=== PATIENT | female | born 1990 | race Caucasian/White ===

== ENCOUNTER 2017-04-14 18:29 | Emergency (ER) | payer OTHER ==
[2017-04-14 18:34] VITALS: O2SAT 99
--- NOTE | 2017-04-14 18:40 | EDPHY ---
H & P Stated Complaint: bonked heads with her horse thursday/having alberto/feels off Time Seen by Provider: 04/14/17 18:39 - Personal History LMP (Females 10-55): IUD In Place Current Tetanus/Diphtheria Vaccine: Yes - Medical/Surgical History Hx Asthma: No Hx Chronic Respiratory Disease: No Hx Diabetes: No Hx Cardiac Disease: No Hx Renal Disease: No Hx Cirrhosis: No Hx Alcoholism: No Hx HIV/AIDS: No Hx Splenectomy or Spleen Trauma: No Other PMH: csects - Social History Smoking Status: Current every day smoker Constitutional: Initial Vital Signs Temperature (C) 36.7 C 04/14/17 18:32 Heart Rate 83 04/14/17 18:32 Respiratory Rate 18 04/14/17 18:32 Blood Pressure 120/70 04/14/17 18:32 O2 Sat (%) 99 04/14/17 18:32 O2 Delivery Mode Room Air Allergies/Adverse Reactions: No Known Allergies Allergy (Unverified 04/14/17 18:31) Home Medications: Medication Instructions Recorded NK [No Known Home Meds] 04/14/17 Medical Decision Making - Diagnostics Imaging Results: Imaging Impressions Head CT 04/14/17 18:47 Impression: Normal. I telephoned results to Dr. Talat Vincent at 1920 hours. Imaging: Discussed imaging studies w/ machine scallop cutter Radiologist ED Course/Re-evaluation: CHIEF COMPLAINT: Headache, nausea, photophobia HISTORY OF PRESENT ILLNESS: 26-year-old female who is healthy. She was head- butted by her horse 2 days ago. She has a brief loss of consciousness at the time. She also has some antegrade and mild retrograde amnesia. She is presenting with mild nausea but no vomiting. She denies any neurologic problem. She states that she has had a dull headache since the event and that the light bothers her eyes as well as loud noises. REVIEW OF SYSTEMS: A 10 point review of systems was performed and is negative with the exception of the elements mentioned in the history of present illness. PHYSICAL EXAM: HR, BP, O2 Sat, RR. Temp noted General Appearance: Alert, well hydrated, appropriate, and non-toxic appearing. Head: Atraumatic without scalp tenderness or obvious injury Eyes: Pupils equal, round, reactive to light and accommodation, EOMI, no trauma , no injection. Ears: Clear bilaterally, no perforation, normal landmarks Nose: Atraumatic, no rhinorrhea, clear. Throat: There is no erythema or exudates, no lesions, normal tonsils, mucus membranes moist. Neck: Supple, 2+ carotid upstroke, nontender, no lymphadenopathy. Respiratory: No retractions, no distress, no wheezes, and no accessory muscle use. Lungs are clear to auscultation bilaterally. Cardiovascular: Regular rate and rhythm, no murmurs, rubs, or gallops. Bilateral carotid, radial, dorsalis pedis, and posterior tibial pulses intact. Good capillary refill all extremities. Gastrointestinal: Abdomen is soft, nontender, non-distended, no masses, no rebound, no guarding, no peritoneal signs. Musculoskeletal: Normal active ROM of all extremities, atraumatic. Neurological: Alert, appropriate, and interactive. The patient has normal DTRs and non-focal cranial nerves, motor, sensory, and cerebellar exam. Skin: Small red area on the right forehead at the hairline. No rashes, good turgor, no nodules on palpation. Past medical history: Prior concussion last year Past surgical history: None Family history: Noncontributory Social history: Single, does not abuse tobacco drugs or alcohol DIAGNOSTICS/PROCEDURES/CRITICAL CARE TIME: Study: CT of the head without contrast Indication: positive [place] head CT rules set Results: CT scan of the head was obtained. The results of the study are normal. The study was read by the radiologist, . I viewed the images myself on the PACS system. DIFFERENTIAL DIAGNOSIS: Includes but is not limited to: Concussion, intracranial injury, skull fracture, subdural hematoma, epidural hematoma, subarachnoid blood. MEDICAL DECISION MAKING: This patient rules in based on the [place] head CT rules set since she has loss of consciousness and amnesia. She also has point tenderness on her scalp in the right upper forehead region along the hairline. Otherwise her exam is unremarkable. Head CT is pending. 19:[address] Rodriguez, radiologist. CT head unremarkable. Plan to discharge home in good condition. Return precautions discussed. The patient is comfortable with this plan. Departure - Departure Disposition: Home, Routine, Self-Care Clinical Impression: Post concussive syndrome Condition: Good Instructions: Post Concussion Syndrome (ED) Additional Instructions: 1. Brain rest - avoid excessive screen time or any activities that worsen your symptoms. You may reintroduce activities as tolerated. 2. Physical rest - avoid any activities in which you may sustain repeated head injury such as contact sports until your symptoms have completely resolved. 3. Follow up with your primary care provider for continuing concerns. 4. Return to the emergency department for worsening headache, fainting, numbness or weakness, vomiting, or other worsening of condition. Referrals: Alexandra Aviles MD [Primary Care Provider] - As per Instructions Report Scribed for: Talat Vincent Report Scribed by: Debbie Guerrero Date of Report: 04/14/17 Time of Report: 19:34
[2017-04-14 19:49] VITALS: BP 105/56; PULSE 73; RESP 16; TEMP 98.2
== END 2017-04-14 19:50 | disposition home or self-care (01) ==
DX: G44.309 Post-traumatic headache, unspecified, not intractable (principal); F07.81 Postconcussional syndrome; F17.200 Nicotine dependence, unspecified, uncomplicated; W55.12XA Struck by horse, initial encounter

== ENCOUNTER 2018-04-12 21:10 | Emergency (ER) | payer SELFPAY ==
[2018-04-12] MEDS ORDERED: IBUPROFEN 600 MG TAB PO ONE ×2 (21:41→21:46)
--- NOTE | 2018-04-12 22:12 | EDPHY ---
H & P Time Seen by Provider: 04/12/18 21:44 HPI/ROS: Chief complaint. Sore throat HPI. 27-year-old female sore throat, headache, achy for 1 day. No cough. No rash. No abdominal pain or vomiting or diarrhea. No chest discomfort or shortness of breath. History of strep. No known exposures or recent travel. Feels similar to previous strep infections. She has some low back and hip pain. No urinary symptoms. ROS Constitutional. Fever Eyes. no problems with vision ENT. Sore throat Cardiovascular. no chest pain Respiratory. no shortness of breath, no cough Abdominal. no abdominal pain, no nausea/vomiting, no diarrhea . no problems urinating MS. Myalgias Skin. no rash Lymph. no swollen glands Neuro. headache, no dizziness, no difficulty walking or with speech Past Medical/Surgical History: IUD, Social History: Single, smoker, no alcohol Smoking Status: Current every day smoker Physical Exam: General Appearance: Alert well-developed female mild distress vital signs significant for temp 37.8 degrees Eyes: Pupils equal and round no pallor or injection. ENT, tympanic membranes are normal. Pharynx injected without exudate. Mucous membranes are moist Respiratory: There are no retractions, lungs are clear to auscultation. Cardiovascular: Regular rate and rhythm. Gastrointestinal: Abdomen is soft and nontender, no masses, bowel sounds normal. Neurological: Awake and alert, sensory and motor exams grossly normal. Skin: Warm and dry, no rashes. Musculoskeletal: Neck is supple nontender. Extremities symmetrical, full range of motion. Psychiatric: Patient is oriented X 3, there is no agitation. Constitutional: Initial Vital Signs Temperature (C) 37.8 C 04/12/18 21:12 Heart Rate 98 04/12/18 21:12 Respiratory Rate 16 04/12/18 21:12 Blood Pressure 100/62 04/12/18 21:12 O2 Sat (%) 95 04/12/18 21:12 O2 Delivery Mode Room Air Allergies/Adverse Reactions: No Known Allergies Allergy (Unverified 04/14/17 18:31) Home Medications: Medication Instructions Recorded Penicillin V Potassium [Penicillin 500 mg PO BID #14 tab 04/12/18 VK] Medical Decision Making Procedures: Ibuprofen and Decadron in the emergency department ED Course/Re-evaluation: Strep screen is negative. Patient and I discussed laboratory evaluation, treatment plan including criteria for return importance of follow-up and further evaluation. She expresses understanding and agreement Differential Diagnosis: I considered viral syndrome, strep pharyngitis, influenza - Data Points Laboratory Results: 04/12/18 04/12/18 Unknown 21:30 Group A Strep Screen NEGATIVE (NEGATIVE) Group A Strep DNA Pending Medications Given: Discontinued Medications Ibuprofen (Motrin) 600 mg PO EDNOW ONE Stop: 04/12/18 21:42 Last Admin: 04/12/18 21:43 Dose: 600 mg Departure - Departure Disposition: Home, Routine, Self-Care Clinical Impression: Pharyngitis Qualifiers: Pharyngitis/tonsillitis etiology: unspecified etiology Qualified Code(s): J02.9 - Acute pharyngitis, unspecified Condition: Good Instructions: Pharyngitis (ED) Additional Instructions: Drink plenty of fluids and stay hydrated. Ibuprofen 600 mg every 6 hr for fever and achiness Penicillin as antibiotic. Return for worsening symptoms. Recheck in 2-3 days if not improving Referrals: Alexandra Aviles MD [Primary Care Provider] - 2-3 days, if not improved Prescriptions: Penicillin V Potassium [Penicillin VK] 500 mg PO BID #14 tab
[2018-04-12] MEDS ORDERED: PENICILLIN VK 500 MG TAB PO ONE (22:26)
[2018-04-12] MEDS ORDERED: DEXAMETHASONE 4 MG TAB PO ONE (22:27)
[2018-04-12 22:33] VITALS: BP 121/68
== END 2018-04-12 22:38 | disposition home or self-care (01) ==
DX: J02.9 Acute pharyngitis, unspecified (principal)

== ENCOUNTER → 2018-06-14 | Outpatient (CLI) | payer OTHER | LOC: FIMAGING 18:46 | PROVIDERS: ATTEND Family Medicine | DX: S43.431A Superior glenoid labrum lesion of right shoulder, initial encounter (principal); M75.80 Other shoulder lesions, unspecified shoulder ==

== ENCOUNTER 2018-11-30 09:06 | Emergency (ER) | payer OTHER ==
[2018-11-30] MEDS ORDERED: PHENAZOPYRIDINE HCL 200 MG TAB PO ONE (09:50)
--- NOTE | 2018-11-30 09:52 | EDPHY ---
General Time Seen by Provider: 11/30/18 09:27 Narrative: CLINICAL IMPRESSION: Urinary tract infection ASSESSMENT/PLAN: 28-year-old otherwise healthy female presents to the emergency department with 3 days of UTI symptoms. Patient is currently on Macrobid, prescribed by Urgent Care yesterday, presents to the ED stating that she continues to have bilateral lower abdominal pain, flank pain and dysuria. No reported fever, chills, nausea , vomiting or dehydration. Vital signs stable. No tachycardia or signs of urosepsis. She is not otherwise immunocompromised and has no history of chronic UTI. She is not . Urine is consistent with UTI today. Low clinical suspicion for pyelonephritis or urosepsis. Patient was changed to Keflex and I gave peridium prescription. Encouraged primary care follow-up in the next 2-3 days. Warning signs return to ED sooner outlined in person and discharge papers. DIFFERENTIAL DX: Abdominal pain includes but not limited to urinary tract infection, pyelonephritis, infection, ectopic , salpingitis, TOA, ovarian torsion, ovarian cyst, endometriosis, uterine fibroids, acute appendicitis, acute diverticulitis, small-bowel obstruction, constipation CHIEF COMPLAINT: UTI symptoms HPI: 28-year-old otherwise healthy female presents to the emergency department with 3 days of UTI symptoms. Patient was seen at urgent care yesterday, prescribed Macrobid and was taking azo. She was told to be seen in the ED if symptoms are worsening. Patient reports she still feels like she is "urinating razor blades ". She reports bilateral abdominal pain radiating to the flank. No associated nausea, vomiting, fever, chills. She has been able to drink and stay hydrated. No abnormal complaints. She has a Mirena in place. No concern for . No history of pyelonephritis or chronic UTIs. PAST MEDICAL HISTORY: None reported See triage summary and nurse notes for addition applicable history Pertinent Past Surgical History: None reported Family History: Noncontrasted Social History: Otherwise healthy Mirena in place REVIEW OF SYSTEMS: A full 10 point review of systems was negative except for those mentioned in HPI. PHYSICAL EXAM: General Appearance: Alert, oriented, appropriate, cooperative, NAD, well hydrated, non-toxic appearing, VSS, afebrile no hypoxia. HEENT: Oropharynx clear is no erythema or exudates, no tonsillar hypertrophy or asymmetry. Dentition without abnormality.] Respiratory: There are no retractions, lungs are clear to auscultation. Cardiac: Regular rate and rhythm, no murmurs or gallops. Gastrointestinal: Abdomen is soft, generalized lower abdominal discomfort bowel sounds normal, no masses/hernia, no rigidity, guarding or focal peritoneal findings. Skin: Warm, dry, no rashes, no nodules on palpation. MEDICAL DECISION MAKING: Patient was seen independently. Secondary supervising physician at time of evaluation was: Dr. Vincent. Diagnosis: Urinary tract infection. New, requires workup Summary: See Assessment and Plan for summary of ED visit Clinical lab tests: ordered / reviewed. Patient Progress: Improved, stable for discharge . - History Smoking Status: Former smoker - Objective Vital Signs: Initial Vital Signs Temperature (C) 37 C 11/30/18 09:10 Heart Rate 82 11/30/18 09:10 Respiratory Rate 17 11/30/18 09:10 Blood Pressure 114/66 11/30/18 09:10 O2 Sat (%) 97 11/30/18 09:10 O2 Delivery Mode Room Air Allergies/Adverse Reactions: No Known Allergies Allergy (Verified 11/30/18 09:09) Home Medications: Medication Instructions Recorded Azo Cranberry 11/30/18 Cephalexin [Keflex (*)] 500 mg PO QID #28 cap 11/30/18 Macrobid 11/30/18 Phenazopyridine HCl [Pyridium] 100 mg PO TID PRN #10 tab 11/30/18 Laboratory Results: 11/30/18 11/30/18 09:43 09:43 Urine Color ROGER Urine Appearance CLEAR Urine pH 5.0 (5.0-7.5) Ur Specific [place] 1.024 (1.002-1.030) Urine Protein NEGATIVE (NEGATIVE) Urine Ketones NEGATIVE (NEGATIVE) Urine Blood NEGATIVE (NEGATIVE) Urine Nitrate POSITIVE H (NEGATIVE) Urine Bilirubin NEGATIVE (NEGATIVE) Urine Urobilinogen 4.0 EU H EU (0.2-1.0) Ur Leukocyte Esterase NEGATIVE (NEGATIVE) Urine RBC 3-5 /hpf H /hpf (0-3) Urine WBC 3-5 /hpf H /hpf (0-3) Ur Epithelial Cells TRACE /lpf /lpf (NONE-1+) Urine Mucus 3+ /lpf H /lpf (NONE-1+) Urine Glucose NEGATIVE (NEGATIVE) Urine Test NEGATIVE Medications Given: Discontinued Medications Phenazopyridine HCl (Pyridium) 200 mg PO EDNOW ONE Stop: 11/30/18 09:51 Last Admin: 11/30/18 09:57 Dose: 200 mg Departure - Departure Disposition: Home, Routine, Self-Care Clinical Impression: UTI (urinary tract infection) Qualifiers: Urinary tract infection type: acute cystitis Hematuria presence: without hematuria Qualified Code(s): N30.00 - Acute cystitis without hematuria Condition: Good Instructions: Urinary Tract Infection in Women (ED) Additional Instructions: DISCHARGE INSTRUCTIONS FROM YOUR DOCTOR Thank you for visiting our emergency department today. You were treated by a physician assistant quality manager today and your case was reviewed with our ED Attending physician. Please keep in mind that discharge from the emergency department does not mean that there is nothing wrong - it simply means that we have not identified an emergency condition that requires further evaluation or treatment in the hospital. You should always plan to follow up with primary care for re- evaluation of your condition in the next 2-3 days. If you have been referred to a specialist, please call as soon as possible (today or tomorrow) to schedule your follow up appointment at the appropriate time. PLEASE TAKE THE NEW ANTIBIOTIC WE PRESCRIBED TODAY DIRECTED. COMPLETE THE FULL COURSE OF ANTIBIOTIC. PYRIDIUM WAS ALSO PRESCRIBED TO USE FOR BURNING. PLEASE STAY WELL HYDRATED. PLEASE SEE A PRIMARY CARE DOCTOR IN 2-3 DAYS TO RECHECK. RETURN TO THE EMERGENCY DEPARTMENT FOR SEVERE ABDOMINAL PAIN, NAUSEA, VOMITING, INABILITY TO STAY HYDRATED, FEVERS GREATER THAN 100.4, CHILLS, INABILITY TO URINATE OR ANY OTHER CONCERN People present with illnesses and injuries in different ways, and it is always possible that we have missed something. You may always return for re-evaluation if symptoms worsen or if they are not improving or if you develop new/different symptoms. Again, thank you for choosing our emergency department. We hope that you feel better. Referrals: Alexandra Aviles MD [Primary Care Provider] - 1-2 days without fail Prescriptions: Cephalexin [Keflex (*)] 500 mg PO QID #28 cap Phenazopyridine HCl [Pyridium] 100 mg PO TID PRN #10 tab PRN Reason: Pain, Breakthrough
[2018-11-30 10:43] VITALS: BP 118/71
== END 2018-11-30 10:42 | disposition home or self-care (01) ==
DX: N30.00 Acute cystitis without hematuria (principal)